=== PATIENT | female | born 1985 | race Caucasian/White ===

== ENCOUNTER 2019-05-25 13:12 | Emergency (ER) | payer MEDICAID ==
[~2019-05-25] VITALS: Ht 177.8 cm; Wt 75.0 kg
[2019-05-25 13:16] VITALS: Ht 177.8 cm; Wt 75.0 kg
[2019-05-25] MEDS ORDERED: SUMATRIPTAN SUC25 MG PO (15:48)
[2019-05-25 16:27] VITALS: BP 120/76
== END 2019-05-25 16:25 | disposition home or self-care (01) ==
LOC: D.ER 13:12
DX: G43.909 Migraine, unspecified, not intractable, without status migrainosus (principal)